=== PATIENT | male | born 1980 | race Two or more races ===

== ENCOUNTER → 2019-05-09 | Outpatient (CLI) | payer OTHER ==
[~2019-05-09] MED LIST: IOPAMIDOL 370 MG/ML 200 ML INFUS..BTL INJ ONE; SODIUM CHLORIDE 0.9% 50ML 50 ML ONE
--- NOTE | 2019-05-09 08:58 | Diagnostic Imaging Report ---
EXAM: CT Abdomen WITH intravenous contrast INDICATION: Pancreatic cyst COMPARISON: None. TECHNIQUE: The abdomen was scanned utilizing a multidetector helical scanner from the lung base to the iliac crest after administration of IV contrast. Coronal and sagittal reformations were obtained. Routine protocol was performed. Scan was performed during portal venous phase. IV CONTRAST: 100mL of Isovue 370 ORAL CONTRAST: Water RADIATION DOSE: Total DLP: 110.5 mGy*cm Dose modulation, iterative reconstruction, and/or weight based adjustment of the mA/kV was utilized to reduce the radiation dose to as low as reasonably achievable. FINDINGS: LOWER THORAX: Normal. HEPATOBILIARY: Diffuse hepatic steatosis. No biliary ductal dilation. No focal liver mass. Decompressed gallbladder. SPLEEN: No splenomegaly. PANCREAS: 1.5 cm hypoattenuating lesion in the body of the pancreas measures soft tissue attenuation. No associated pancreatic ductal dilation. ADRENALS: No adrenal nodules. KIDNEYS/URETERS: No hydronephrosis, stones, or solid mass lesions. PERITONEUM / RETROPERITONEUM: No free air or fluid. LYMPH NODES: No lymphadenopathy. VESSELS: Unremarkable. GI TRACT: No distention or wall thickening. BONES AND SOFT TISSUES: Unremarkable. IMPRESSION: 1.5 cm hypoattenuating soft tissue lesion in the body of the pancreas is nonspecific. No associated pancreatic ductal dilation. Recommend further evaluation with MRI with and without gadolinium contrast. Diffuse hepatic steatosis. Signed by: Sophy Doty MD on 05/09/2019 8:55 AM
== END ==
LOC: EDBD 05-04 10:30 → CT 07:42 → EDSEX 08:00
PROVIDERS: ATTEND Internal Medicine
DX: K86.2 Cyst of pancreas (principal)
CPT/HCPCS: 74160; Q9967